=== PATIENT | male | born 1965 | race American Indian/Alaskan Native ===

== ENCOUNTER 2017-07-22 09:23 | Inpatient (IN) | payer OTHER ==
[2017-07-22 10:57] LABS: BASO % 1.2 % (0.0-2.0); EOS # 0.2 K/uL (0.0-0.7); EOS % 5.6 % (0.0-4.0); HEMOGLOBIN 15.6 g/dL (12.0-18.0); LYMPH # 1.2 K/uL (1.0-4.3); LYMPH % 38.7 % (20.0-40.0); MEAN CORPUSCULAR HEMOGLOBIN 31.5 pg (27.0-31.0); MEAN CORPUSCULAR HGB CONC 34.2 g/dL (33.0-37.0); MEAN PLATELET VOLUME 8.3 fL (7.2-11.7); MONO # 0.4 K/uL (0.0-0.8); MONO % 14.4 % (0.0-10.0); NEUT # 1.2 K/uL (1.8-7.0); NEUT % 40.1 % (50.0-75.0); NRBC % 0.1 % (0.0-2.0); RBC 4.95 Mil/uL (4.40-5.90); RED CELL DISTRIBUTION WIDTH 12.7 % (11.5-14.5); WHITE BLOOD COUNT 3.1 K/uL (4.8-10.8)
[2017-07-22 11:10] LABS: ALBUMIN 3.9 g/dL (3.5-5.0); ALT/SGPT 34 U/L (21-72); AST/SGOT 45 U/L (17-59); BLOOD UREA NITROGEN 11 mg/dL (9-20); CALCIUM 9.2 mg/dl (8.6-10.4); GFR AFRICAN-AMERICAN > 60; GFR NON-AFRICAN AMERICAN > 60
--- NOTE | 2017-07-22 11:44 | RAD ---
HISTORY: Detox/Psy COMPARISON: None available. TECHNIQUE: Chest, one view. FINDINGS: LUNGS: No focal consolidation. 6 mm nodular density, right lower lobe. Please note that chest x-ray has limited sensitivity for the detection of pulmonary masses. PLEURA: No significant pleural effusion identified. No definite pneumothorax . CARDIOVASCULAR: The cardiomediastinal silhouette appears within normal limits of size. OSSEOUS STRUCTURES: No acute osseous abnormality identified. VISUALIZED UPPER ABDOMEN: Unremarkable. OTHER FINDINGS: None. IMPRESSION: No focal consolidation, significant pleural effusion, or definite pneumothorax identified. 6 mm nodular density, right lower lobe. CT chest may be considered for further assessment.
[2017-07-22 12:04] LABS: BARBITURATES, UR NEGATIVE (NEGATIVE); BENZODIAZEPINES, UR NEGATIVE (NEGATIVE); PHENCYCLIDINE, UR NEGATIVE (NEGATIVE)
[2017-07-22 12:20] LABS: OPIATES, UR POSITIVE (NEGATIVE)
[2017-07-22 13:45] LABS: SQUAMOUS EPITHIAL 1 /hpf (0-5); URINE BILIRUBIN NEGATIVE (NEGATIVE); URINE BLOOD TRACE (NEGATIVE); URINE CLARITY Clear (Clear); URINE COLOR Amber (YELLOW); URINE GLUCOSE (UA) NORMAL (Normal); URINE LEUKOCYTE ESTERASE TRACE Leu/uL (Negative); URINE NITRATE NEGATIVE (NEGATIVE); URINE PROTEIN 1+ mg/dL (NEGATIVE)
--- NOTE | 2017-07-22 14:55 | C.PDOC ---
History Of Present Illness 52 year old male presents to the ER requesting detox from opiates and heroin, last use was this morning. Denies physical complaints at this time. Time Seen by Provider: 07/22/17 09:43 Chief Complaint (Nursing): Substance Abuse History Per: Patient History/Exam Limitations: no limitations Onset/Duration Of Symptoms: Days Current Symptoms Are (Timing): Still Present Suicide/Self Injury Attempted (Context): None Modifying Factor(s): Other (Opiates, Heroin) Associated Symptoms: denies: Depression, Suicidal Thoughts Involuntary Hold By: None Recent travel outside of the [place]: No Past Medical History Reviewed: Historical Data, Nursing Documentation, Vital Signs Vital Signs: Last Vital Signs Temp 97.9 F 07/22/17 14:15 Pulse 80 07/22/17 14:15 Resp 16 07/22/17 14:15 BP 134/86 07/22/17 14:15 Pulse Ox 98 07/22/17 14:56 - Medical History PMH: HTN Family History: States: Unknown Family Hx - Social History Hx Alcohol Use: Yes Hx Substance Use: Yes (heroin) - Immunization History Hx Tetanus Toxoid Vaccination: No Hx Influenza Vaccination: Yes Hx Pneumococcal Vaccination: No Review Of Systems Constitutional: Negative for: Fever, Chills Respiratory: Negative for: Cough Gastrointestinal: Negative for: Nausea, Vomiting, Diarrhea Physical Exam - Physical Exam Appears: Non-toxic, No Acute Distress, Other (Intoxicated) Skin: Normal Color, Warm, Dry Head: Atraumatic, Normacephalic Eye(s): bilateral: Normal Inspection Oral Mucosa: Moist Chest: Symmetrical, No Tenderness Cardiovascular: Rhythm Regular Respiratory: Normal Breath Sounds, No Rales, No Rhonchi, No Wheezing Gastrointestinal/Abdominal: Soft, No Tenderness Neurological/Psych: Oriented x3, Normal Speech ED Course And Treatment - Laboratory Results Result Diagrams: 07/22/17 10:52 07/22/17 10:52 ECG: Interpreted By Me, Viewed By Me ECG Rhythm: Sinus Bradycardia ECG Interpretation: Normal Rate From EC O2 Sat by Pulse Oximetry: 98 (Room air) Pulse Ox Interpretation: Normal - Other Rad CXR X-Ray: Viewed By Me, Read By Radiologist Interpretation: HISTORY: Detox/Psy. COMPARISON: None available. TECHNIQUE: Chest, one view. FINDINGS: LUNGS: No focal consolidation. 6 mm nodular density, right lower lobe. Please note that chest x-ray has limited sensitivity for the detection of pulmonary masses. PLEURA: No significant pleural effusion identified. No definite pneumothorax . CARDIOVASCULAR: The cardiomediastinal silhouette appears within normal limits of size. OSSEOUS STRUCTURES: No acute osseous abnormality identified. VISUALIZED UPPER ABDOMEN : Unremarkable. OTHER FINDINGS: None. IMPRESSION: No focal consolidation, significant pleural effusion, or definite pneumothorax identified. 6 mm nodular density, right lower lobe. CT chest may be considered for further assessment. Progress Note: Patient's initally blood pressure found to be mildly elevated, will not treat and reevaluate later. CXR ordered, results showed 6mm nodule, further imaging is recommended. Case discussed with Frida from detox unit who gave information to Dr. Seth who will order CT and consult medicine. Repeat blood pressure shows improvement, patient is medically cleared. 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 - Scribe Statement The provider has reviewed the documentation as recorded by the Scribmichelle Lewis All medical record entries made by the Mary were at my direction and personally dictated by me. I have reviewed the chart and agree that the record accurately reflects my personal performance of the history, physical exam, medical decision making, and the department course for this patient. I have also personally directed, reviewed, and agree with the discharge instructions and disposition.
--- NOTE | 2017-07-22 15:26 | PCM.BM ---
<Leatha Bloom - Last Filed: 07/22/17 15:25> Treatment Plan Problems - Problems identified on initial assessmt Opiates dependence Date Initiated: 07/22/17 Time Initiated: 15:45 Assessment reference: NA Status: Active Treatment assets and liabiliti Patient Assests: ADL independent, negotiates basic needs Patient Liabilities: substance abuse - Milieu Protocol Maintain good personal hygiene: daily Encourage regular showers, daily Remind patient to perform daily oral care, daily Assist patient to perform ADL's Conduct patient checks and document Observation sheet: Q15 minutes Maintain personal safety: every shift Educate patient to report safety concerns to staff, every shift Monitor environment for contraband/sharps Medication safety: Monitor for expected outcome, potential side effects: every shift, Assess barriers to learning: every shift, Assess readiness for medication education: every shift <Mala Seth - Last Filed: 07/23/17 11:56> - Diagnosis (1) Opiate abuse, continuous Status: Acute Interventions: 07/23/17 11:55 * Assess 7x/week regarding severity of withdrawal * Educate regarding risks, benefits, side effects and alternatives of medications * Use Motivational Interviewing for abstinence * Use CBT for relapse prevention * Medication management for withdrawal symptoms * Encourage medication assisted treatment *
[2017-07-22] MEDS ORDERED: Aluminum Hydroxide/Magnesium Hydroxide Susp (30 mL) PO PRN (16:22)
[2017-07-22 20:02] VITALS: RESP 18
[2017-07-23] MEDS ORDERED: Buprenorphine Hydrochloride 2 mg SL ONE ×3 (03:28→16:00)
[2017-07-23 10:00] VITALS: BP 148/97; PULSE 64; TEMP 98.5; O2SAT 99
--- NOTE | 2017-07-23 10:13 | PCM.PSYCH ---
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 He is using 10 bags by snorting x10 years. Last use was two days ago and he already was withdrawing, medicated around 3 am He smokes crack cocaine daily for years. He uses "a little" alcohol and 1 ppd cigarettes, denies all other drugs. Used MJ in the past No detox or rehab, NA or MAT Psych hx: Denies Medical hx: HTN Family hx: Denies Current Medications: Active Medications Generic Name Dose Route Start Last Admin Trade Name Freq PRN Reason Stop Dose Admin Al Hydrox/Mg Hydrox/Simethicone 30 ml 07/22/17 16:22 Maalox 30 Ml PO TID PRN Indigestion / Heartburn Clonidine HCl 0.1 mg 07/22/17 16:22 Catapres PO Q8 PRN COWS Score More or Equal to 5 Hydroxyzine HCl 50 mg 07/22/17 16:23 Atarax PO Q6H PRN Anxiety Ibuprofen 600 mg 07/22/17 16:27 Motrin Tab PO Q6H PRN Pain, moderate (4-7) Loperamide HCl 2 mg 07/22/17 16:22 Imodium PO Q8 PRN Diarrhea Ondansetron HCl 4 mg 07/22/17 16:22 Zofran Tab PO Q8 PRN Nausea/Vomiting Pneumococcal Polyvalent Vaccine 0.5 ml 07/24/17 10:00 Pneumovax 23 Vaccine IM 07/24/17 10:01 .ONCE ONE Trazodone HCl 100 mg 07/22/17 16:23 Desyrel PO HS PRN Insomnia Past Psychiatric History - Past Psychiatric History Previous Treatment History: Inpatient Pertinent Medical Hx (Current Medical&Sleep Prob, Allergies): Allergies Allergy/AdvReac Type Severity Reaction Status Date / Time No Known Allergies Allergy Verified 10/14/15 16:23 No Known Home Med 07/22/17 Review of Systems - Neurological Neurological: UNREMARKABLE - Psychiatric Psychiatric: Abnormal Sleep Pattern, Anxiety. absent: Auditory Hallucinations, Homicidal Ideation, Suicidal Ideation Mental Status Examination - Personal Presentation Personal Presentation: Looks older than stated age - Affect Affect: Constricted - Motor Activity Motor Activity: Calm - Reliability in Providing Information Reliability in Providing Information: Fair - Speech Speech: Organized - Mood Mood: Anxious - Formal Thought Process Formal Thought Process: No Impairment - Cognitive Functions Orientation: Person, Place, Situation, Time Sensorium: Alert Attention/Concentration: Attentive Abstract Thinking: [place] Estimate of Intelligence: Below average (borderline?) Judgement: Intact, as evidence by: Insight regarding need for hospitalization Memory: Recent intact, as evidence by: Ability to recall events of the day, Remote intact, as evidenced by: Ability to recall historical events - Risk Risk: Withdrawal, Diminished functioning - Strength & Assets Inventory Strength & Assets Inventory: Cooperative - Limitations Limitations: Other DSM 5 DX - DSM 5 DSM 5 Diagnosis: Opioid withdrawal Opioid use d/o - severe Cocaine use d/o - severe Tobacco use d/o - severe - Recommended/Plan of Treatment Treatment Recommendations and Plan of Treatment: Start taper for opioids Groups and activities Indiv tx with CA and CBT Refer to a rehab Encourage for MAT Same with cocaine Same with tobacco 33 min Projected ELOS: 4 days - Smoking Cessation Smoking Cessation Initiated: Yes
[2017-07-23] MEDS ORDERED: Multiple Vitamins Tab PO SCH (10:15)
--- NOTE | 2017-07-23 13:50 | CARD ---
APPROVED REPORT EKG Measurement Heart [id number] ID [id number] <Conclusion> Sinus bradycardia with sinus arrhythmia Voltage criteria for left ventricular hypertrophy Abnormal ECG
--- NOTE | 2017-07-23 14:04 | PCM.PYCHDC ---
Discharge Summary - Discharge Note Consultations:: List each consultation separately and include: 1. Reason for request. 2. Findings. 3. Follow-up Summary of Hospital Course include:: 1. Description of specific treatment plan utilized for patients during their course of treatmen. 2. Summarize the time- course for resolution of acute symptoms and/or regressed behaviors. 3. Describe issues identified and worked on during hospitalization. 4. Describe medication utilized. 5. Describe medical problems identified and treated. 6. 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 He is using 10 bags by snorting x10 years. Last use was two days ago and he already was withdrawing, medicated around 3 am He smokes crack cocaine daily for years. He uses "a little" alcohol and 1 ppd cigarettes, denies all other drugs. Used MJ in the past No detox or rehab, NA or MAT Psych hx: Denies Medical hx: HTN Family hx: Denies DC'ed b/c he smoked on the unit, a cigarette is found and his bathroom and his belongings were smelling like smoke, and his room-mate who was almost bedbound of NC admitted that the pt had smoked. - Diagnosis (1) Opiate abuse, continuous Status: Acute - Final Diagnosis (DSM 5) Condition upon Discharge: STABLE Disposition: HOME/ ROUTINE
[2017-07-24] MEDS ORDERED: Pneumococcal 23-Valent Vaccine IM ONE (10:00)
[2017-07-24] MEDS ORDERED: Buprenorphine Hydrochloride 2 mg SL SCH (10:00)
[2017-07-24] MEDS ORDERED: Influenza Vaccine 60 mcg/0.5 mL SYR (4YR UP) IM ONE (10:00)
== END 2017-07-23 12:10 | disposition home or self-care (01) | DRG 745 ==
LOC: C.ER 09:23 → C.7D 14:55
PROVIDERS: ADMIT Psychiatry & Neurology Psychiatry; ATTEND Psychiatry & Neurology Psychiatry
PROC: HZ2ZZZZ Detoxification Services for Substance Abuse Treatment (ICD-10-PCS; principal; 2017-07-22)
DX: F11.23 Opioid dependence with withdrawal (principal); F14.90 Cocaine use, unspecified, uncomplicated; F17.210 Nicotine dependence, cigarettes, uncomplicated; I10 Essential (primary) hypertension

== ENCOUNTER 2017-10-16 15:16 | Inpatient (IN) | payer OTHER ==
[2017-10-16 16:22] LABS: BASO # 0.1 K/uL (0.0-0.2); BASO % 1.4 % (0.0-2.0); EOS # 0.3 K/uL (0.0-0.7); EOS % 5.2 % (0.0-4.0); HEMOGLOBIN 14.5 g/dL (12.0-18.0); LYMPH # 1.9 K/uL (1.0-4.3); LYMPH % 36.1 % (20.0-40.0); MEAN CELL VOLUME 90.9 fL (80.0-94.0); MEAN CORPUSCULAR HEMOGLOBIN 31.4 pg (27.0-31.0); MEAN CORPUSCULAR HGB CONC 34.6 g/dL (33.0-37.0); MEAN PLATELET VOLUME 7.6 fL (7.2-11.7); MONO # 0.8 K/uL (0.0-0.8); MONO % 15.8 % (0.0-10.0); NEUT # 2.2 K/uL (1.8-7.0); NEUT % 41.5 % (50.0-75.0); NRBC % 0.1 % (0.0-2.0); RBC 4.6 Mil/uL (4.40-5.90); RED CELL DISTRIBUTION WIDTH 13.4 % (11.5-14.5); WHITE BLOOD COUNT 5.3 K/uL (4.8-10.8)
--- NOTE | 2017-10-16 16:26 | C.PDOC ---
Addendum entered and electronically signed by Ish Hutchins MD 10/17/17 07:03: Disposition Discussed With DrFazal: Elba Summers Comment: accepted the pt on her service and took over the care at7 AM Clinical Impression: Polysubstance abuse Disposition: HOSPITALIZED Disposition Time: 05:54 Condition: FAIR Stand Alone Forms: [employer] [facility] ([place]ian) Decision To Admit - Pt Status Changed To: Hospital Disposition Of: Inpatient - Admit Certification Admit to Inpatient:: After my assessment, the patient will require hospitalization for at least two midnights. This is because of the severity of symptoms shown, intensity of services needed, and/or the medical risk in this patient being treated as an outpatient. - InPatient: Physician Admission Certification: I certify that this patient requires 2 or more midnights of care for the following reason:: After my assessment, the patient will require hospitalization for at least two midnights. This is because of the severity of symptoms shown, intensity of services needed, and/or the medical risk in this patient being treated as an outpatient. - . Bed Request Type: Detox Patient Diagnosis: Polysubstance abuse Original Note: History Of Present Illness <Ish Hutchins - Last Filed: 10/17/17 07:02> <Johnathan Holley - Last Filed: 10/21/17 14:05> 52-year-old male, presents to the emergency department, requesting detox from Heroin and Cocaine. Patient last used this morning. pt restless at bedside, states unsure if herorin was l"aced with something" Denies SI/HI. (Johnathan Holley) <Ish Hutchins - Last Filed: 10/17/17 07:02> History Per: Patient History/Exam Limitations: no limitations Current Symptoms Are (Timing): Still Present <Johnathan Holley - Last Filed: 10/21/17 14:05> Time Seen by Provider: 10/16/17 15:38 Chief Complaint (Nursing): Substance Abuse Past Medical History Reviewed: Historical Data, Nursing Documentation, Vital Signs - Medical History PMH: HTN Family History: States: No Known Family Hx - Social History Hx Alcohol Use: Yes Hx Substance Use: Yes (heroin, cocaine) - Immunization History Hx Tetanus Toxoid Vaccination: No Hx Influenza Vaccination: Yes Hx Pneumococcal Vaccination: No <Johnathan Holley - Last Filed: 10/21/17 14:05> Vital Signs: Last Vital Signs Temp 98.1 F 10/20/17 06:19 Pulse 61 10/20/17 08:56 Resp 20 10/20/17 08:56 BP 130/91 H 10/20/17 08:56 Pulse Ox 99 10/20/17 08:56 - [facility] Procedures DETOXIFICATION SERVICES FOR SUBSTANCE ABUSE TREATMENT (07/22/17) Review Of Systems Except As Marked, All Systems Reviewed And Found Negative. Constitutional: Negative for: Fever Cardiovascular: Negative for: Chest Pain Respiratory: Negative for: Shortness of Breath Gastrointestinal: Negative for: Vomiting Neurological: Negative for: Weakness, Headache, Dizziness Psych: Negative for: Suicidal ideation, Withdrawal <Johnathan Holley - Last Filed: 10/21/17 14:05> Physical Exam - Physical Exam Appears: Non-toxic, No Acute Distress Skin: Normal Color, Warm, Dry, No Rash Head: Normacephalic Eye(s): bilateral: PERRL Nose: Normal Oral Mucosa: Moist Lips: Normal Appearing Neck: Normal ROM Cardiovascular: Rhythm Regular, No Murmur Respiratory: Normal Breath Sounds, No Accessory Muscle Use Gastrointestinal/Abdominal: Soft, No Tenderness Extremity: Normal ROM, No Deformity, No Swelling Neurological/Psych: Oriented x3, Normal Speech <Johnathan Holley - Last Filed: 10/21/17 14:05> ED Course And Treatment - Laboratory Results Result Diagrams: 10/16/17 16:19 10/16/17 16:19 <Ish Hutchins - Last Filed: 10/17/17 07:02> - Laboratory Results Result Diagrams: 10/16/17 16:19 10/16/17 16:19 ECG: Interpreted By Me, Viewed By Me ECG Rhythm: Nonspecific Changes (Nonspecific ST/T changes ) Interpretation Of ECG: No interval changes from previous EKG Rate From EC O2 Sat by Pulse Oximetry: 97 (RA) Pulse Ox Interpretation: Normal <Johnathan Holley - Last Filed: 10/21/17 14:05> Medical Decision Making <Ish Hutchins - Last Filed: 10/17/17 07:02> <Johnathan Holley - Last Filed: 10/21/17 14:05> Medical Decision Making: pt upon arriavl, mildly restless. po ativan given. during ed course pt became increasingly restless, pacing around er, taking off clothes. ativan and geodon given for pt safety. pt intially placed in restraints. ativan given (Johnathan Holley) Disposition Doctor Will See Patient In The: Hospital Counseled Patient/Family Regarding: Studies Performed, Diagnosis - Disposition Disposition Time: 05:54 - POA Present On Arrival: None <Ish Hutchins - Last Filed: 10/17/17 07:02> <Johnathan Holley - Last Filed: 10/21/17 14:05> - Disposition Disposition: HOSPITALIZED Condition: FAIR - Clinical Impression Clinical Impression: Polysubstance abuse <Ish Hutchins - Last Filed: 10/17/17 07:02> - Scribe Statement The provider has reviewed the documentation as recorded by the Scribe (Catracho Eid) <Johnathan Holley - Last Filed: 10/21/17 14:05> - Scribe Statement All medical record entries made by the Scribe were at my direction and personally dictated by me. I have reviewed the chart and agree that the record accurately reflects my personal performance of the history, physical exam, medical decision making, and the department course for this patient. I have also personally directed, reviewed, and agree with the discharge instructions and disposition. (Johnathan Holley) Decision To Admit - Pt Status Changed To: Hospital Disposition Of: Inpatient - Admit Certification Admit to Inpatient:: After my assessment, the patient will require hospitalization for at least two midnights. This is because of the severity of symptoms shown, intensity of services needed, and/or the medical risk in this patient being treated as an outpatient. - InPatient: Physician Admission Certification: I certify that this patient requires 2 or more midnights of care for the following reason:: After my assessment, the patient will require hospitalization for at least two midnights. This is because of the severity of symptoms shown, intensity of services needed, and/or the medical risk in this patient being treated as an outpatient. - . Bed Request Type: Detox Admitting Physician: Elba Summers <Ish Hutchins - Last Filed: 10/17/17 07:02> <Johnathan Holley - Last Filed: 10/21/17 14:05> - . Patient Diagnosis: Polysubstance abuse Physician Patient Turnover Patient Signed Over To: Alberta Sheldon Handoff Comments: pending crisis dispostion <Ish Hutchins - Last Filed: 10/17/17 07:02>
[2017-10-16 16:37] LABS: SQUAMOUS EPITHIAL 1 /hpf (0-5); URINE BACTERIA RARE (<OCC); URINE BILIRUBIN NEGATIVE (NEGATIVE); URINE BLOOD 2+ (NEGATIVE); URINE CLARITY Hazy (Clear); URINE COLOR Amber (YELLOW); URINE GLUCOSE (UA) NORMAL (Normal); URINE LEUKOCYTE ESTERASE NEG Leu/uL (Negative); URINE PROTEIN 2+ mg/dL (NEGATIVE)
[2017-10-16 16:38] LABS: ALBUMIN 4.1 g/dL (3.5-5.0); ALT/SGPT 75 U/L (21-72); AST/SGOT 149 U/L (17-59); BLOOD UREA NITROGEN 17 mg/dL (9-20); CALCIUM 9.1 mg/dl (8.6-10.4); GFR AFRICAN-AMERICAN > 60; GFR NON-AFRICAN AMERICAN > 60
[2017-10-16 16:50] LABS: BARBITURATES, UR NEGATIVE (NEGATIVE); BENZODIAZEPINES, UR NEGATIVE (NEGATIVE); OPIATES, UR POSITIVE (NEGATIVE); PHENCYCLIDINE, UR NEGATIVE (NEGATIVE)
--- NOTE | 2017-10-17 07:51 | PCM.BM ---
<Honorio Malik - Last Filed: 10/17/17 07:51> Treatment assets and liabiliti Patient Assests: ADL independent, negotiates basic needs Patient Liabilities: poor support system, relationship conflicts, substance abuse - Milieu Protocol Maintain good personal hygiene: daily Encourage regular showers, daily Remind patient to perform daily oral care, daily Assist patient to perform ADL's Maintain personal safety: every shift Educate patient to report safety concerns to staff, every shift Monitor environment for contraband/sharps Medication safety: Monitor for expected outcome, potential side effects: every shift, Assess barriers to learning: every shift, Assess readiness for medication education: every shift <Mala Seth - Last Filed: 10/18/17 13:57> - Diagnosis (1) Opiate abuse, continuous Status: Acute Interventions: 10/18/17 13:57 * Assess 7x/week regarding severity of withdrawal * Educate regarding risks, benefits, side effects and alternatives of medications * Use Motivational Interviewing for abstinence * Use CBT for relapse prevention * Medication management for withdrawal symptoms * Encourage medication assisted treatment *
[2017-10-17] MEDS: Multiple Vitamins Tab PO SCH (09:15)
--- NOTE | 2017-10-17 16:41 | PCM.PSYCH ---
Initial Psychiatric Evaluation - Initial Psychiatric Evaluation Type of Admission: Voluntary Legal Status: Capacity Chief Complaint (in patient's own words): "I want to sleep" History of Present Illness and Precipitating Events: Patient is a 52 year old Male admitted for Heroin detox. Patient in the ER is presenting with erratic behavior, his appearance its unkempt, his speech was rapid, his train of though is flight of ideas, however, patient is oriented to time, place and person. He received ativan and Geodon in the ER. After coming to unit he appeared lethargic and on evaluation he stated that he wants to sleep. Patient reported he start using heroin at the age of 19, his last use 10/15/17. He is using 10 bags intra nasal on a daily basis. He reported that he experience opioid withdrawal symptoms when he is not able to receive heroin. Patient reported he also using cocaine, he first started using at age 32, he last use 10/15/17. He reported using 5 bottles smoking on a daily basis. Patient reported no previous detox, inpatient or outpatient programs previously. Patient denied depressive symptoms. Patient denies S/I, H/I, A/V/T hallucinations. P atient reported suffering from high blood pressure and takes medication for it; however, he is not able to remember name of physician prescribing meds or name of medication. It is unknown, if patient is compliant with medication. Patient reported multiple arrests in the past for shoplifting and 4 incarcerations. Currently not having any open cases. Patient seeking detox from heroin. Alcohol denied Marijuana denied He denied amphetamine use. Medical Hx: HTN FH: He denied family history of substance use. Utox +ve opioid, cocaine, amphetamine . Current Medications: Active Medications Generic Name Dose Route Start Last Admin Trade Name Freq PRN Reason Stop Dose Admin Benztropine Mesylate 2 mg 10/17/17 08:18 Cogentin PO Q6H PRN eps Chlordiazepoxide 25 mg 10/17/17 08:08 Librium PO Q4H PRN Alcohol Withdrawal Clonidine HCl 0.1 mg 10/17/17 08:06 Catapres PO Q8 PRN COWS Score More or Equal to 5 Haloperidol 5 mg 10/17/17 08:16 Haldol PO Q6H PRN severe agitation and psychosis Hydroxyzine HCl 25 mg 10/17/17 08:16 Atarax PO Q4H PRN Anxiety Loperamide HCl 2 mg 10/17/17 08:06 Imodium PO Q8 PRN Diarrhea Lorazepam 2 mg 10/17/17 14:45 Ativan PO Q6H PRN severe anxiety and agitation Multivitamins 1 tab 10/17/17 10:00 10/17/17 09:15 Hexavitamin PO 1 tab DAILY EUGENIA Administration Ondansetron HCl 4 mg 10/17/17 08:06 Zofran Tab PO Q8 PRN Nausea/Vomiting Quetiapine Fumarate 25 mg 10/17/17 22:00 Seroquel PO HS EUGENIA Trazodone HCl 50 mg 10/17/17 08:08 Desyrel PO HS PRN Insomnia Past Psychiatric History - Past Psychiatric History Previous Treatment History: None History of Abuse: denied History of ETOH/Drug Use: please see HPI History of Family Illness: denied Pertinent Medical Hx (Current Medical&Sleep Prob, Allergies): Allergies Allergy/AdvReac Type Severity Reaction Status Date / Time No Known Allergies Allergy Verified 10/14/15 16:23 No Known Home Med 07/22/17 Review of Systems - Review of Systems All systems: reviewed and no additional remarkable complaints except (see HPI) Mental Status Examination - Personal Presentation Personal Presentation: Looks younger than stated age Additional comments: He was lying in the bed, wearing hospital gowns - Affect Affect: Constricted - Motor Activity Motor Activity: Calm Additional comments: sleepy - Reliability in Providing Information Reliability in Providing Information: Fair - Speech Speech: Organized - Mood Mood: Neutral - Formal Thought Process Formal Thought Process: No Impairment - Hallucinations/Delusions Hallucinations: Other (denied) - Obsessions/Compulsions Obsessions: None Compulsions: None - Cognitive Functions Orientation: Person, Place, Situation, Time Sensorium: Drowsy, Lethargic Attention/Concentration: Easily distracted Abstract Thinking: Combs Estimate of Intelligence: Average Judgement: Intact, as evidence by: Good judgement, Intact, as evidence by: Insight regarding need for hospitalization Memory: Recent intact, as evidence by: Ability to recall events of the day - Risk Risk: Withdrawal - Strength & Assets Inventory Strength & Assets Inventory: Interests/hobbies, Cooperative - Limitations Limitations: Other (chronic drug use) DSM 5 DX - DSM 5 DSM 5 Diagnosis: Opioid use disorder, severe, dependence, OPioid withdrawal symptoms Cocaine use disorder - Recommended/Plan of Treatment Treatment Recommendations and Plan of Treatment: Subutex detox As needed meds and vitamins Attend groups and activities OK for abstinence and CBT for relapse prevention Support and psychoeducation Consider and encourage MAT Therapy in milieu 33 min Projected ELOS: 5-6 days Discharge Plan and Discharge Criteria: Refer to after care - Smoking Cessation Smoking Cessation Initiated: Yes
[2017-10-17] MEDS ORDERED: Buprenorphine Hydrochloride 2 mg SL ONE ×2 (20:52→21:42)
[2017-10-18] MEDS ORDERED: Vitamins A & D Oint UD Foilpak TOP PRN (08:23)
[2017-10-18] MEDS: Buprenorphine Hydrochloride 2 mg SL SCH (10:34)
[2017-10-18] MEDS: Multiple Vitamins Tab PO SCH (10:34)
--- NOTE | 2017-10-18 14:43 | PCM.PYCHPN ---
Psychiatric Progress Note - Psychiatric Progress Note Patient seen today, length of contact: 17 min Patient Chief Complaint: "Not well" Problems Identified/Issues Discussed: The pt is seen, chart reviewed, case discussed with staff. Support and psychoeducation given, CBT and IA used briefly No new symptoms reported, improving slowly and needs more time He is odd and isolated. Likely mild ID No SEs from medications, risks discussed. After care discussed Medication Change: Yes (detox changes daily) Medical Record Reviewed: Yes Mental Status Examination - Cognitive Function Orientation: Person, Place, Situation, Time Memory: Impaired Attention: Poor Concentration: Poor Association: WNL Fund of Knowledge: Poor - Mood Mood: Anxious - Affect Affect: Constricted - Speech Speech: Appropriate - Formal Thought Process Formal Thought Process: No Impairment - Suicidal Ideation Suicidal Ideation: No - Homicidal Ideation Homicidal Ideation: No Goal/Treatment Plan - Goal/Treatment Plan Need for Continued Stay: Discharge may exacerbated symptoms, Severe functional impairment Progress Toward Problem(s) and Goals/Treatment Plan: Continue detox As needed medications Gabapentin for augmentation if needed All risks, benefits and alternatives of medications, including no medications, discussed and the patient understood and agreed. Attend groups and activities Supportive therapy and psychoeducation [place] for abstinence CBT for relapse prevention Encourage MAT Refer to rehab or IOP Attend self-help groups as well [place] for smoking cessation and patch if needed
[2017-10-19] MEDS: Buprenorphine Hydrochloride 2 mg SL SCH (09:55)
[2017-10-19] MEDS: Multiple Vitamins Tab PO SCH (09:55)
--- NOTE | 2017-10-19 14:10 | PCM.PYCHPN ---
Psychiatric Progress Note - Psychiatric Progress Note Patient seen today, length of contact: 17 min Patient Chief Complaint: "OK" Problems Identified/Issues Discussed: The pt is seen, chart reviewed, case discussed with staff. 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 He wants to complete his detox here but is not sure about after care. No SEs from meds Support given, OR used Medication Change: Yes (detox changes daily) Medical Record Reviewed: Yes Mental Status Examination - Cognitive Function Orientation: Person, Place, Situation, Time Memory: Impaired Attention: Poor Concentration: Poor Association: WNL Fund of Knowledge: Poor - Mood Mood: Anxious - Affect Affect: Constricted - Speech Speech: Slurred - Formal Thought Process Formal Thought Process: Paranoia, Loosening of associations - Suicidal Ideation Suicidal Ideation: No - Homicidal Ideation Homicidal Ideation: No Goal/Treatment Plan - Goal/Treatment Plan Need for Continued Stay: Discharge may exacerbated symptoms, Severe functional impairment Progress Toward Problem(s) and Goals/Treatment Plan: Continue detox As needed medications Seroquel for schizoaffective d/o Monitor, imit setting, support re ID Gabapentin for augmentation if needed All risks, benefits and alternatives of medications, including no medications, discussed and the patient understood and agreed. Attend groups and activities Supportive therapy and psychoeducation OR for abstinence CBT for relapse prevention Encourage MAT Refer to rehab or IOP Attend self-help groups as well [place] for smoking cessation and patch if needed Estimated Date of D/C: 10/20/17
[2017-10-20 06:23] VITALS: TEMP 98.1
--- NOTE | 2017-10-20 08:47 | PCM.PYCHDC ---
Mental Status Examination - Mental Status Examination Orientation: Person Discharge Summary - Discharge Note Consultations:: List each consultation separately and include: 1. Reason for request. 2. Findings. 3. Follow-up Summary of Hospital Course include:: 1. Description of specific treatment plan utilized for patients during their course of treatmen. 2. Summarize the time- course for resolution of acute symptoms and/or regressed behaviors. 3. Describe issues identified and worked on during hospitalization. 4. Describe medication utilized. 5. Describe medical problems identified and treated. 6. Reassessment of suicide risk Summary of Hospital Course: The pt was admitted and started on treatment with psychotherapy, support, psychoeducation and medications. [place] and CBT used. The pt attended groups and activities, as well as milieu therapy. All the risks and benefits of medications are discussed and the patient understood and agreed. The pt improved with the treatments provided. After care discussed with the patient. He will attend [facility] in [place]. - Diagnosis (1) Opiate abuse, continuous Status: Acute - Final Diagnosis (DSM 5) Condition upon Discharge: FAIR Disposition: HOME/ ROUTINE Follow-up Treatment Plan: Continue below medications after discharge. Follow after care plan as discussed. Use relapse prevention skills Return to ER or call 911 if suicidal, homicidal or symptoms relapse. Stay away from stress, alcohol and drugs. See primary doctor regularly and get labs. Prescriptions/Medication Reconciliation: traZODone [Desyrel] 50 mg PO HS PRN #30 tab PRN Reason: Insomnia
[2017-10-20 09:00] VITALS: BP 130/91; PULSE 61; RESP 20
[2017-10-20] MEDS: Buprenorphine Hydrochloride 2 mg SL SCH (09:29)
[2017-10-20] MEDS: Multiple Vitamins Tab PO SCH (09:30)
[2017-10-21 14:05] VITALS: O2SAT 97
== END 2017-10-20 11:12 | disposition home or self-care (01) | DRG 744 ==
LOC: C.ER 15:16 → C.7D 10-17 07:01
PROVIDERS: ADMIT Psychiatry & Neurology Psychiatry; ATTEND Psychiatry & Neurology Psychiatry
PROC: HZ2ZZZZ Detoxification Services for Substance Abuse Treatment (ICD-10-PCS; principal; 2017-10-17)
PROC: HZ52ZZZ Individual Psychotherapy for Substance Abuse Treatment, Cognitive-Behavioral (ICD-10-PCS; 2017-10-17)
PROC: HZ59ZZZ Individual Psychotherapy for Substance Abuse Treatment, Supportive (ICD-10-PCS; 2017-10-17)
PROC: HZ56ZZZ Individual Psychotherapy for Substance Abuse Treatment, Psychoeducation (ICD-10-PCS; 2017-10-17)
PROC: HZ42ZZZ Group Counseling for Substance Abuse Treatment, Cognitive-Behavioral (ICD-10-PCS; 2017-10-17)
PROC: HZ46ZZZ Group Counseling for Substance Abuse Treatment, Psychoeducation (ICD-10-PCS; 2017-10-17)
PROC: GZHZZZZ Group Psychotherapy (ICD-10-PCS; 2017-10-17)
PROC: GZ58ZZZ Individual Psychotherapy, Cognitive-Behavioral (ICD-10-PCS; 2017-10-17)
PROC: GZ56ZZZ Individual Psychotherapy, Supportive (ICD-10-PCS; 2017-10-17)
DX: F11.23 Opioid dependence with withdrawal (principal); F25.9 Schizoaffective disorder, unspecified; F10.230 Alcohol dependence with withdrawal, uncomplicated; F70 Mild intellectual disabilities; F14.10 Cocaine abuse, uncomplicated; I10 Essential (primary) hypertension; Z78.1 Physical restraint status; Y90.0 Blood alcohol level of less than 20 mg/100 ml; F17.210 Nicotine dependence, cigarettes, uncomplicated; R45.1 Restlessness and agitation

== ENCOUNTER 2018-03-04 09:19 | Inpatient (IN) | payer OTHER ==
[2018-03-04 10:36] LABS: BASO % 1.1 % (0.0-2.0); EOS # 0.2 K/uL (0.0-0.7); LYMPH # 0.9 K/uL (1.0-4.3); LYMPH % 29.5 % (20.0-40.0); MEAN CELL VOLUME 92.3 fL (80.0-94.0); MEAN CORPUSCULAR HGB CONC 33.6 g/dL (33.0-37.0); MEAN PLATELET VOLUME 8.4 fL (7.2-11.7); MONO # 0.4 K/uL (0.0-0.8); NEUT # 1.4 K/uL (1.8-7.0); NEUT % 48.4 % (50.0-75.0); NRBC % 0.2 % (0.0-2.0); RBC 4.82 Mil/uL (4.40-5.90); RED CELL DISTRIBUTION WIDTH 13.4 % (11.5-14.5); WHITE BLOOD COUNT 2.9 K/uL (4.8-10.8)
[2018-03-04 10:44] LABS: ALB/GLOB RATIO 1.1 (1.0-2.1); ALBUMIN 3.7 g/dL (3.5-5.0); ALT/SGPT 34 U/L (21-72); AST/SGOT 49 U/L (17-59); BLOOD UREA NITROGEN 9 mg/dL (9-20); GFR NON-AFRICAN AMERICAN > 60
[2018-03-04 12:48] LABS: SQUAMOUS EPITHIAL 1 /hpf (0-5); URINE BILIRUBIN NEGATIVE (NEGATIVE); URINE BLOOD NEGATIVE (NEGATIVE); URINE CLARITY Hazy (Clear); URINE COLOR Yellow (YELLOW); URINE GLUCOSE (UA) NORMAL (Normal); URINE LEUKOCYTE ESTERASE NEG Leu/uL (Negative); URINE PROTEIN NEGATIVE (NEGATIVE)
--- NOTE | 2018-03-04 12:54 | C.PDOC ---
History Of Present Illness 52 year old male presents to the ED requesting heroin detox. Patient states his last use was yesterday and is now complaining of nausea and generalized weakness and body aches. Patient denies suicidal/homicidal ideation or any other substance abuse at this time. Time Seen by Provider: 03/04/18 09:43 Chief Complaint (Nursing): Substance Abuse History Per: Patient History/Exam Limitations: no limitations Onset/Duration Of Symptoms: Hrs Current Symptoms Are (Timing): Still Present Suicide/Self Injury Attempted (Context): None Modifying Factor(s): Narcotics (heroin ) Associated Symptoms: denies: Suicidal Thoughts, Suicidal Plan Involuntary Hold By: None Recent travel outside of the [place]: No Additional History Per: Patient Past Medical History Reviewed: Historical Data, Nursing Documentation, Vital Signs Vital Signs: Last Vital Signs Temp 98.6 F 03/04/18 09:28 Pulse 62 03/04/18 09:28 Resp 20 03/04/18 09:28 BP 161/94 H 03/04/18 09:28 Pulse Ox 100 03/04/18 09:28 - Medical History PMH: Anxiety, Depression, HTN Denies: Diabetes, Hepatitis, HIV, Chronic Kidney Disease, Seizures, Sexually Transmitted Disease Surgical History: No Surg Hx - [facility] DETOXIFICATION SERVICES FOR SUBSTANCE ABUSE TREATMENT (10/17/17) GROUP SOFTWARE SALES CONSULTANT FOR SUBSTANCE ABUSE TREATMENT, PSYCHOEDUCATION (10/17/17) GROUP SOFTWARE SALES CONSULTANT FOR SUBSTANCE ABUSE, COGNITIVE BEHAVIORAL (10/17/17) GROUP PSYCHOTHERAPY (10/17/17) INDIV PSYCHOTHERAPY FOR SUBSTANCE ABUSE TREATMENT, SUPPORT (10/17/17) INDIV PSYCHOTHERAPY FOR SUBSTANCE ABUSE, COGNITIV BEHAVIORAL (10/17/17) INDIV PSYCHOTHERAPY FOR SUBSTANCE ABUSE, PSYCHOEDUCATION (10/17/17) INDIVIDUAL PSYCHOTHERAPY, COGNITIVE-BEHAVIORAL (10/17/17) INDIVIDUAL PSYCHOTHERAPY, SUPPORTIVE (10/17/17) Family History: States: Unknown Family Hx - Social History Hx Alcohol Use: Yes Hx Substance Use: Yes - Immunization History Hx Tetanus Toxoid Vaccination: Yes Hx Influenza Vaccination: Yes Hx Pneumococcal Vaccination: Yes Review Of Systems Psych: Positive for: Other (heroin detox ). Negative for: Suicidal ideation Physical Exam - Physical Exam Appears: Non-toxic, No Acute Distress Skin: Normal Color, Warm, Dry Head: Atraumatic, Normacephalic Eye(s): bilateral: Normal Inspection Oral Mucosa: Moist Neck: Supple Chest: Symmetrical, No Deformity, No Tenderness Cardiovascular: Rhythm Regular, No Murmur Respiratory: Normal Breath Sounds, No Rales, No Rhonchi, No Wheezing Extremity: Normal ROM, Capillary Refill (less than 2 seconds ) Neurological/Psych: Oriented x3, Normal Speech, Normal Cognition ED Course And Treatment - Laboratory Results Result Diagrams: 03/04/18 10:20 03/04/18 10:20 O2 Sat by Pulse Oximetry: 100 (on RA) Pulse Ox Interpretation: Normal Progress Note: Bloodwork and urinalysis ordered and reviewed. Patient was evaluted by postal worker. Patient is medically cleared for an admission to Detox unit. Patient will benefit from Medical consult to evaluate his chronic leucopenia. Disposition - Disposition Disposition: HOSPITALIZED Disposition Time: 14:05 Condition: STABLE - Clinical Impression Clinical Impression: Drug dependence, Leucopenia - PA / MASS SPECTROSCOPIST / Resident Statement MD/DO has reviewed & agrees with the documentation as recorded. - Scribe Statement The provider has reviewed the documentation as recorded by the Scribe (Chiquita Combs) All medical record entries made by the Scribe were at my direction and personally dictated by me. I have reviewed the chart and agree that the record accurately reflects my personal performance of the history, physical exam, medical decision making, and the department course for this patient. I have also personally directed, reviewed, and agree with the discharge instructions and disposition. Decision To Admit - Pt Status Changed To: Hospital Disposition Of: Inpatient - Admit Certification Admit to Inpatient:: After my assessment, the patient will require hospitalization for at least two midnights. This is because of the severity of symptoms shown, intensity of services needed, and/or the medical risk in this patient being treated as an outpatient. - InPatient: Physician Admission Certification: I certify that this patient requires 2 or more midnights of care for the following reason:: Patient will need more than 2 days of Detox admission - . Bed Request Type: Detox Admitting Physician: Mala Seth Patient Diagnosis: Drug dependence, Leucopenia
[2018-03-04 13:00] LABS: BARBITURATES, UR NEGATIVE (NEGATIVE); BENZODIAZEPINES, UR NEGATIVE (NEGATIVE); PHENCYCLIDINE, UR NEGATIVE (NEGATIVE)
[2018-03-04 13:03] LABS: OPIATES, UR POSITIVE (NEGATIVE)
--- NOTE | 2018-03-04 14:50 | PCM.BM ---
<Luis Eduardo Sánchez - Last Filed: 03/04/18 14:48> Treatment Plan Problems - Problems identified on initial assessmt potential for opiate withdrawal Date Initiated: 03/04/18 Time Initiated: 14:49 Status: Active Treatment assets and liabiliti Patient Assests: ADL independent, negotiates basic needs Patient Liabilities: substance abuse - Milieu Protocol Maintain good personal hygiene: daily Encourage regular showers, daily Remind patient to perform daily oral care, daily Assist patient to perform ADL's Conduct patient checks and document Observation sheet: Q15 minutes Maintain personal safety: every shift Educate patient to report safety concerns to staff, every shift Monitor environment for contraband/sharps Medication safety: Monitor for expected outcome, potential side effects: every shift, Assess barriers to learning: every shift, Assess readiness for medication education: every shift <Mala Seth - Last Filed: 03/07/18 10:59> - Diagnosis (1) Opiate abuse, continuous Status: Acute Interventions: 03/07/18 10:59 * Assess 7x/week regarding severity of withdrawal * Educate regarding risks, benefits, side effects and alternatives of medications * Use Motivational Interviewing for abstinence * Use CBT for relapse prevention * Medication management for withdrawal symptoms * Encourage medication assisted treatment *
--- NOTE | 2018-03-04 15:14 | PCM.PSYCH ---
Initial Psychiatric Evaluation - Initial Psychiatric Evaluation Type of Admission: Voluntary Legal Status: Capacity History of Present Illness and Precipitating Events: He is seen, chart reviewed and case discussed. he is known from previous admission this year. Patient is a 52 year old Male admitted for Heroin detox. Patient reported he start using heroin at the age of 19, his last use was last night and COWS>10 now. He is using 12 bags intranasal on a daily basis. He reported that he experience opioid withdrawal symptoms when he is not able to receive heroin. He relapsed soon afetr d/c from our detox in September. Patient reported he's also using cocaine, he first started using at age 32, he last use 10/15/17. He reported using 5 bottles smoking on a daily basis. Patient reported no previous detox, inpatient or outpatient programs previously, except for . Patient denied depressive symptoms. Patient denies S/I, H/I, A/V/T hallucinations. Patient reported suffering from high blood pressure and is noncompliant with medication. Patient reported multiple arrests in the past for shoplifting and 4 incarcerations. Currently not having any open cases. Alcohol: 2 cans a day Marijuana denied Medical Hx: HTN FH: He denied family history of substance use. Current Medications: Active Medications Generic Name Dose Route Start Last Admin Trade Name Freq PRN Reason Stop Dose Admin Clonidine HCl 0.1 mg 03/04/18 14:45 Catapres PO Q8 PRN COWS Score More or Equal to 5 Hydroxyzine HCl 50 mg 03/04/18 14:47 Atarax PO Q6H PRN Anxiety Ibuprofen 600 mg 03/04/18 14:47 Motrin Tab PO Q6H PRN Pain, moderate (4-7) Loperamide HCl 2 mg 03/04/18 14:45 Imodium PO Q8 PRN Diarrhea Magnesium Hydroxide 30 ml 03/04/18 18:00 Milk Of Magnesia PO 03/06/18 18:01 BID EUGENIA Methadone HCl 25 mg 03/04/18 15:30 Methadone PO 03/04/18 15:31 ONCE ONE Ondansetron HCl 4 mg 03/04/18 14:45 Zofran Tab PO Q8 PRN Nausea/Vomiting Trazodone HCl 100 mg 03/04/18 14:47 Desyrel PO HS PRN Insomnia Past Psychiatric History - Past Psychiatric History Previous Treatment History: None Pertinent Medical Hx (Current Medical&Sleep Prob, Allergies): Allergies Allergy/AdvReac Type Severity Reaction Status Date / Time No Known Allergies Allergy Verified 03/04/18 09:31 No Known Home Med 03/04/18 Review of Systems - Neurological Neurological: UNREMARKABLE - Psychiatric Psychiatric: Abnormal Sleep Pattern, Anhedonia, Anxiety, Difficulty Concentrating. absent: Hallucinations, Homicidal Ideation, Paranoia, Suicidal Ideation Mental Status Examination - Personal Presentation Personal Presentation: Looks older than stated age - Affect Affect: Constricted - Motor Activity Motor Activity: Calm - Reliability in Providing Information Reliability in Providing Information: Fair - Speech Speech: Organized - Mood Mood: Anxious - Formal Thought Process Formal Thought Process: No Impairment - Cognitive Functions Orientation: Person, Place, Situation, Time Sensorium: Alert Attention/Concentration: Easily distracted Abstract Thinking: [place] Estimate of Intelligence: Below average Judgement: Intact, as evidence by: Insight regarding need for hospitalization Memory: Recent intact, as evidence by: Ability to recall events of the day, Remote impaired as evidenced by: Inability to recall sig life events - Risk Risk: Withdrawal, Diminished functioning - Strength & Assets Inventory Strength & Assets Inventory: Cooperative - Limitations Limitations: Other DSM 5 DX - DSM 5 DSM 5 Diagnosis: Opioid use disorder, severe, dependence, OPioid withdrawal Cocaine use disorder, severe - Recommended/Plan of Treatment Treatment Recommendations and Plan of Treatment: Taper with methadone Gabapentin for augmentation if needed As needed medications All risks, benefits and alternatives of the meds discussed, and the pt agreed and understood. Attend groups and activities Supportive therapy and psychoeducation [place] for abstinence CBT for relapse prevention Encourage MAT Refer to rehab or IOP, and self-help groups Teach healthy lifestyle methods, i.e. diet, exercise, meditation Smoking cessation with [place] Nicotine patch if needed 34 min Projected ELOS: 4-5 days - Smoking Cessation Smoking Cessation Initiated: Yes
[2018-03-04] MEDS ORDERED: Magnesium Hydroxide Susp 30 ml UD PO SCH (18:00)
--- NOTE | 2018-03-05 11:13 | PCM.PYCHPN ---
Psychiatric Progress Note - Psychiatric Progress Note Patient seen today, length of contact: 15 min Patient Chief Complaint: I am withdrawing.' Problems Identified/Issues Discussed: Patient seen and evaluated, chart reviewed and discussed with the nurse. Patient reports withdrawal symptoms including, cramps, nausea, anxiety and headaches. Patient reports some anxiety but denies any suicidal ideation or homicidal ideation. He denies any auditory or visual hallucinations. He is tolerating the withdrawal medications and denies any side effects. Supportive therapy and psychoeducation were given. Medication Change: Yes Medical Record Reviewed: Yes Mental Status Examination - Cognitive Function Orientation: Person, Place, Situation, Time Memory: Intact Attention: WNL Concentration: Poor Association: WNL Fund of Knowledge: Poor - Mood Mood: Anxious - Affect Affect: Constricted - Speech Speech: Soft - Formal Thought Process Formal Thought Process: No Impairment - Suicidal Ideation Suicidal Ideation: No - Homicidal Ideation Homicidal Ideation: No Goal/Treatment Plan - Goal/Treatment Plan Need for Continued Stay: Severe depression anxiety, Severe functional impairment Progress Toward Problem(s) and Goals/Treatment Plan: Opioid use disorder, severe, dependence, OPioid withdrawal Cocaine use disorder, severe Taper with methadone Gabapentin for augmentation if needed As needed medications All risks, benefits and alternatives of the meds discussed, and the pt agreed and understood. Attend groups and activities Supportive therapy and psychoeducation [place] for abstinence CBT for relapse prevention Encourage MAT Refer to rehab or IOP, and self-help groups Teach healthy lifestyle methods, i.e. diet, exercise, meditation Smoking cessation with [place] Nicotine patch if needed
--- NOTE | 2018-03-06 07:51 | PCM.PYCHPN ---
Psychiatric Progress Note - Psychiatric Progress Note Patient seen today, length of contact: 15 min Patient Chief Complaint: I am withdrawing.' Problems Identified/Issues Discussed: Patient seen and evaluated, chart reviewed and discussed with the nurse. Patient reports some anxiety and still reports withdrawal symptoms including, cramps, nausea, anxiety and headaches. He denies any suicidal ideation or homicidal ideation. He denies any auditory or visual hallucinations. He is tolerating the withdrawal medications and denies any side effects. Supportive therapy and psychoeducation were given. Medication Change: Yes Medical Record Reviewed: Yes Mental Status Examination - Cognitive Function Orientation: Person, Place, Situation, Time Memory: Intact Attention: WNL Concentration: Poor Association: WNL Fund of Knowledge: Poor - Mood Mood: Anxious - Affect Affect: Constricted - Speech Speech: Soft - Formal Thought Process Formal Thought Process: No Impairment - Suicidal Ideation Suicidal Ideation: No - Homicidal Ideation Homicidal Ideation: No Goal/Treatment Plan - Goal/Treatment Plan Need for Continued Stay: Severe depression anxiety, Severe functional impairment Progress Toward Problem(s) and Goals/Treatment Plan: Opioid use disorder, severe, dependence, OPioid withdrawal Cocaine use disorder, severe Taper with methadone Gabapentin for augmentation if needed As needed medications All risks, benefits and alternatives of the meds discussed, and the pt agreed and understood. Attend groups and activities Supportive therapy and psychoeducation [place] for abstinence CBT for relapse prevention Encourage MAT Refer to rehab or IOP, and self-help groups Teach healthy lifestyle methods, i.e. diet, exercise, meditation Smoking cessation with [place] Nicotine patch if needed
[2018-03-06 15:58] VITALS: RESP 18
[2018-03-07 10:06] VITALS: BP 144/89; PULSE 60; TEMP 98.5; O2SAT 100
[2018-03-07] MEDS ORDERED: Vitamin A/D oint 60G TP PRN (11:04)
--- NOTE | 2018-03-07 11:54 | PCM.PYCHDC ---
Mental Status Examination - Mental Status Examination Orientation: Person, Place, Situation, Time Memory: Intact Mood: Depressed Affect: Constricted Speech: Appropriate Attention: WNL Concentration: WNL Association: WNL Fund of Knowledge: WNL Formal Thought Process: No Impairment Suicidal Ideation: No Current Homicidal Ideation?: No Discharge Summary - Discharge Note Reason for Hospitalization: Opioid withdrawal Consultations:: List each consultation separately and include: 1. Reason for request. 2. Findings. 3. Follow-up Summary of Hospital Course include:: 1. Description of specific treatment plan utilized for patients during their course of treatmen. 2. Summarize the time- course for resolution of acute symptoms and/or regressed behaviors. 3. Describe issues identified and worked on during hospitalization. 4. Describe medication utilized. 5. Describe medical problems identified and treated. 6. Reassessment of suicide risk Summary of Hospital Course: On admission: He is seen, chart reviewed and case discussed. he is known from previous admission this year. Patient is a 52 year old Male admitted for Heroin detox. Patient reported he start using heroin at the age of 19, his last use was last night and COWS>10 now. He is using 12 bags intranasal on a daily basis. He reported that he experience opioid withdrawal symptoms when he is not able to receive heroin. He relapsed soon afetr d/c from our detox in September. Patient reported he's also using cocaine, he first started using at age 32, he last use 10/15/17. He reported using 5 bottles smoking on a daily basis. Patient reported no previous detox, inpatient or outpatient programs previously, except for . Patient denied depressive symptoms. Patient denies S/I, H/I, A/V/T hallucinations. Patient reported suffering from high blood pressure and is noncompliant with medication. Patient reported multiple arrests in the past for shoplifting and 4 incarcerations. Currently not having any open cases. Alcohol: 2 cans a day Marijuana denied Medical Hx: HTN FH: He denied family history of substance use. Hospital course: The pt was admitted and started on treatment with psychotherapy, support, psychoeducation and medications. [place] and CBT used. The pt attended groups and activities, as well as milieu therapy. All the risks and benefits of medications are discussed and the patient understood and agreed. The pt improved with the treatments provided. After care discussed with the patient. He left a day early b/c of a court date today that he suddenly remembered (??). Risks discussed - Final Diagnosis (DSM 5) Condition upon Discharge: STABLE DSM 5: Opioid use disorder, severe, dependence, OPioid withdrawal Cocaine use disorder, severe Disposition: HOME/ ROUTINE Follow-up Treatment Plan: Continue below medications after discharge. Follow after care plan as discussed. Use relapse prevention skills Return to ER or call 911 if suicidal, homicidal or symptoms relapse. Stay away from stress, alcohol and drugs. See primary doctor regularly and get labs. Prescriptions/Medication Reconciliation: Losartan [Cozaar] 50 mg PO DAILY #30 tab traZODone [Desyrel] 100 mg PO HS PRN #30 tab PRN Reason: Insomnia
== END 2018-03-07 12:18 | disposition home or self-care (01) | DRG 773 ==
LOC: C.ER 09:19 → C.7D 14:15
PROVIDERS: ADMIT Psychiatry & Neurology Psychiatry; ATTEND Psychiatry & Neurology Psychiatry
DX: F11.23 Opioid dependence with withdrawal (principal); F14.20 Cocaine dependence, uncomplicated; I10 Essential (primary) hypertension; Z91.14 Patient's other noncompliance with medication regimen; F41.9 Anxiety disorder, unspecified

== ENCOUNTER 2018-04-25 13:19 | Emergency (ER) | payer OTHER ==
--- NOTE | 2018-04-25 14:54 | C.PDOC ---
History Of Present Illness Patient came to ED requesting detox from heroin. Patient denies suicidal/homicidal ideations. Chief Complaint (Nursing): Substance Abuse History Per: Patient History/Exam Limitations: no limitations Onset/Duration Of Symptoms: Persistent Current Symptoms Are (Timing): Still Present Suicide/Self Injury Attempted (Context): None Modifying Factor(s): Narcotics Past Medical History Reviewed: Historical Data, Nursing Documentation, Vital Signs Vital Signs: Last Vital Signs Temp 98.9 F 04/25/18 14:39 Pulse 69 04/25/18 14:39 Resp 18 04/25/18 14:39 BP 133/85 04/25/18 14:39 Pulse Ox 97 04/25/18 14:39 - Medical History PMH: Anxiety, Depression, HTN Denies: Diabetes, Hepatitis, HIV, Chronic Kidney Disease, Seizures, Sexually Transmitted Disease - [facility] Procedures DETOXIFICATION SERVICES FOR SUBSTANCE ABUSE TREATMENT (10/17/17) GROUP PUNCH MOLDER FOR SUBSTANCE ABUSE TREATMENT, PSYCHOEDUCATION (10/17/17) GROUP PUNCH MOLDER FOR SUBSTANCE ABUSE, COGNITIVE BEHAVIORAL (10/17/17) GROUP PSYCHOTHERAPY (10/17/17) INDIV PSYCHOTHERAPY FOR SUBSTANCE ABUSE TREATMENT, SUPPORT (10/17/17) INDIV PSYCHOTHERAPY FOR SUBSTANCE ABUSE, COGNITIV BEHAVIORAL (10/17/17) INDIV PSYCHOTHERAPY FOR SUBSTANCE ABUSE, PSYCHOEDUCATION (10/17/17) INDIVIDUAL PSYCHOTHERAPY, COGNITIVE-BEHAVIORAL (10/17/17) INDIVIDUAL PSYCHOTHERAPY, SUPPORTIVE (10/17/17) Family History: States: Unknown Family Hx - Social History Hx Alcohol Use: Yes (denies) Hx Substance Use: Yes - Immunization History Hx Tetanus Toxoid Vaccination: Yes Hx Influenza Vaccination: Yes Hx Pneumococcal Vaccination: Yes Review Of Systems Except As Marked, All Systems Reviewed And Found Negative. Physical Exam - Physical Exam Appears: Well, Non-toxic, No Acute Distress Skin: Normal Color, Warm, No Rash Head: Atraumatic, Normacephalic Eye(s): bilateral: Normal Inspection Neck: Normal ROM, Supple Chest: Symmetrical, No Tenderness Cardiovascular: Rhythm Regular, No Edema Respiratory: Normal Breath Sounds Gastrointestinal/Abdominal: Soft, No Tenderness Neurological/Psych: Oriented x3, Normal Speech, Normal Cognition ED Course And Treatment O2 Sat by Pulse Oximetry: 97 Progress Note: Patient was seen by die out worker who gave him referral to outpatient detox because [facility] has no available beds on the Detox floor. Disposition - Disposition Disposition: HOME/ ROUTINE Disposition Time: 14:53 Condition: STABLE Additional Instructions: Follow up with outpatient detox as instructed. Return to ED if feel worse. Instructions: Drug Abuse Treatment Forms: [facility] (Greek) - Clinical Impression Clinical Impression: Drug abuse
[2018-04-25 15:23] VITALS: BP 120/79; PULSE 65; RESP 16; TEMP 98.8; O2SAT 99
== END 2018-04-25 15:22 | disposition home or self-care (01) ==
LOC: C.ER 13:19
DX: F19.10 Other psychoactive substance abuse, uncomplicated (principal); I10 Essential (primary) hypertension

== ENCOUNTER 2018-05-17 15:38 | Emergency (ER) | payer OTHER ==
[2018-05-17 15:43] VITALS: BP 136/96; PULSE 75; RESP 20; TEMP 98.2; O2SAT 98
--- NOTE | 2018-05-17 15:49 | C.PDOC ---
History Of Present Illness 52 year old male presents to the ED requesting detoxification from heroin and alcohol. Patient has multiple visits to the ED with same presentation. Last ED visit was on 04/25/18. He denies any SI/HI, auditory or visual hallucinations. Denies any physical complaints. Time Seen by Provider: 05/17/18 15:46 Chief Complaint (Nursing): Substance Abuse History Per: Patient History/Exam Limitations: no limitations Onset/Duration Of Symptoms: Days Current Symptoms Are (Timing): Still Present Suicide/Self Injury Attempted (Context): None Modifying Factor(s): Alcohol, Narcotics (heroin ) Associated Symptoms: denies: Suicidal Thoughts, Suicidal Plan Past Medical History Reviewed: Historical Data, Nursing Documentation, Vital Signs Vital Signs: Last Vital Signs Temp 98.2 F 05/17/18 15:40 Pulse 75 05/17/18 15:40 Resp 20 05/17/18 15:40 BP 136/96 H 05/17/18 15:40 Pulse Ox 98 05/17/18 15:40 - Medical History PMH: Anxiety, Depression, HTN Denies: Diabetes, Hepatitis, HIV, Chronic Kidney Disease, Seizures, Sexually Transmitted Disease Surgical History: No Surg Hx - [facility] Procedures DETOXIFICATION SERVICES FOR SUBSTANCE ABUSE TREATMENT (10/17/17) GROUP SIGHT MOUNTER FOR SUBSTANCE ABUSE TREATMENT, PSYCHOEDUCATION (10/17/17) GROUP SIGHT MOUNTER FOR SUBSTANCE ABUSE, COGNITIVE BEHAVIORAL (10/17/17) GROUP PSYCHOTHERAPY (10/17/17) INDIV PSYCHOTHERAPY FOR SUBSTANCE ABUSE TREATMENT, SUPPORT (10/17/17) INDIV PSYCHOTHERAPY FOR SUBSTANCE ABUSE, COGNITIV BEHAVIORAL (10/17/17) INDIV PSYCHOTHERAPY FOR SUBSTANCE ABUSE, PSYCHOEDUCATION (10/17/17) INDIVIDUAL PSYCHOTHERAPY, COGNITIVE-BEHAVIORAL (10/17/17) INDIVIDUAL PSYCHOTHERAPY, SUPPORTIVE (10/17/17) Family History: States: No Known Family Hx - Social History Hx Alcohol Use: Yes (denies) Hx Substance Use: Yes - Immunization History Hx Tetanus Toxoid Vaccination: Yes Hx Influenza Vaccination: No Hx Pneumococcal Vaccination: No Review Of Systems Except As Marked, All Systems Reviewed And Found Negative. Constitutional: Negative for: Fever, Chills Psych: Negative for: Suicidal ideation Physical Exam - Physical Exam Appears: Non-toxic, Chronically Ill, Other (tall, black male) Skin: Warm, Dry, No Rash Head: Normacephalic Eye(s): bilateral: Other (pinpoint pupils ) Teeth: Edentulous Neck: Supple Chest: Symmetrical Cardiovascular: Rhythm Regular Respiratory: No Rales, No Rhonchi, No Wheezing Extremity: Normal ROM Neurological/Psych: Oriented x3, Normal Speech Gait: Steady ED Course And Treatment O2 Sat by Pulse Oximetry: 98 (RA) Pulse Ox Interpretation: Normal Medical Decision Making Medical Decision Making: Patient is requesting detox. As per Crisis workers, there are no detox available at the moment. Patient instructed to follow up with outpatient. Disposition Doctor Will See Patient In The: Office Counseled Patient/Family Regarding: Studies Performed, Diagnosis - Disposition Referrals: Alcoholics Anonymous [Outside] [facility] [Outside] [facility] [Outside] [facility] [Outside] [facility] [Outside] [facility] [Outside] Disposition: HOME/ ROUTINE Disposition Time: 15:49 Condition: GOOD Additional Instructions: seek outpatient referral for Detox Seek [facility] Detox is based on availability and most patients are pre-screened PRIOR to arrival @ [facility]. Instructions: Drug Abuse and Drug Addiction (DC), Polysubstance Abuse (DC) Forms: [employer] (Cambodian) - Clinical Impression Clinical Impression: Polysubstance abuse - Scribe Statement The provider has reviewed the documentation as recorded by the Scribe Elinor Payan All medical record entries made by the Scribe were at my direction and p ersonally dictated by me. I have reviewed the chart and agree that the record accurately reflects my personal performance of the history, physical exam, medical decision making, and the department course for this patient. I have also personally directed, reviewed, and agree with the discharge instructions and disposition.
== END 2018-05-17 15:58 | disposition home or self-care (01) ==
LOC: C.ER 15:38
DX: F19.10 Other psychoactive substance abuse, uncomplicated (principal)